=== PATIENT | male | born 1985 | race Caucasian/White ===

== ENCOUNTER 2016-10-30 12:38 | Day surgery (SDC) | payer BC ==
--- NOTE | 2016-10-29 08:04 | HP ---
DATE OF SURGERY: 10/30/2016 ADMISSION DIAGNOSIS: Symptoms of gastroesophageal reflux disease. ANTICIPATED PROCEDURE: EGD. HISTORY OF PRESENT ILLNESS: Symptoms of gastroesophageal reflux disease, epigastric discomfort. Araceli fundoplasty has been suggested. He presents for evaluation today with EGD. PAST MEDICAL HISTORY: ALLERGIES: NONE. MEDICATIONS: Pantoprazole. PAST SURGICAL HISTORY: Colonoscope. SOCIAL HISTORY: Negative. FAMILY HISTORY: Negative. REVIEW OF SYSTEMS: Negative. PHYSICAL EXAMINATION: VITAL SIGNS: Normal. CHEST: Clear. COR: Regular. ABDOMEN: No palpable organomegaly or mass. IMPRESSION: Epigastric pain symptoms and gastroesophageal reflux disease. PLAN: EGD.
[~2016-10-30 12:38] MED LIST: DEMEROL 50 MG IV ONE; Lactated Ringers IV ONE; Versed 2 MG/2 ML Injection IV ONE
[2016-10-30] MEDS ORDERED: Sodium Chloride 0.9% 1000 ML 1,000 ML IV SCH (12:45)
[2016-10-30 14:32] VITALS: BP 98/56; PULSE 60; O2SAT 97
--- NOTE | 2016-10-30 15:28 | OP ---
SURGERY DATE/TIME: 10/30/2016 1310 PREOPERATIVE DIAGNOSIS: Epigastric pain, symptoms of reflux. POSTOPERATIVE DIAGNOSIS: Grade II-III reflux with no hiatal hernia. PROCEDURE: EGD. SURGEON: Dax Birch M.D. ANESTHESIA: IV sedation. COMPLICATIONS: None. CONDITION: Stable. INDICATION: A 31 year-old with symptoms of reflux, epigastric pain. DESCRIPTION OF PROCEDURE: Taken to the endoscopy suite. Left lateral decubitus position. He is a very robust gentleman. 4 mg of Versed, 100 of Demerol. Initial satisfactory sedation. He basically was falling asleep. Despite this he was a little gaggy. I think this is consistent with his diagnosis of reflux. There was a small lip of esophagitis grade II. There was no hiatal hernia. He did have very good reflexes. Fundus, body, antrum normal. Pylorus just a minimal old deformity on the greater curvature side at 9:00 at the pylorus. There was nothing present currently. Keyhole view satisfactory. Pylorus satisfactory. Duodenal bulb satisfactory. Second portion satisfactory. Ampullary area just slightly swollen look but I believe was totally normal. The scope withdrawn. No additional lesions noted. The patient tolerated the procedure satisfactorily. He is on Protonix. Will see him back in the office in about six weeks.
== END 2016-10-30 14:45 | disposition home or self-care (01) ==
LOC: SDC 12:38
PROVIDERS: ATTEND Surgery
PROC: 0DJ08ZZ Inspection of Upper Intestinal Tract, Via Natural or Artificial Opening Endoscopic (ICD-10-PCS; principal; 2016-10-30)
DX: K21.9 Gastro-esophageal reflux disease without esophagitis (principal)
CPT/HCPCS: J2175; J2250

== ENCOUNTER 2018-06-28 19:48 | Emergency (ER) | payer SELFPAY ==
[2018-06-28] MEDS ORDERED: Pepcid 20 MG VIAL IV ONE ×2 (20:56→21:00)
[2018-06-28] MEDS ORDERED: Sodium Chloride 0.9% 1000 ML 1,000 ML IV STA (20:56)
[2018-06-28] MEDS ORDERED: Sodium Chloride 0.9% 1000 ML 1,000 ML ONE (21:00)
--- NOTE | 2018-06-28 21:01 | ERPHSYRPT ---
- History of Present Illness Time Seen by Provider: 06/28/18 20:51 Historian: patient Exam Limitations: no limitations Patient Subjective Stated Complaint: Abdominal pain Triage Nursing Assessment: Patient ambulated into ED and transferred self to bed. Patient A+O X 3. Patient complains of abdominal pain all over abdomen 4/10 , but worse after eating food. Patient states he is burping more than normal. Patietn states after he ate dinner this evening he started having a lot of pain 10/10 and has eased up, but pain is still there. Patient's bowel's are moving more than usual and is getting softer. Patient's abdomen soft and round with bs x 4. Physician History: This is a 32-year-old white male with history of GERD He arrives with complaint of burning pain diffusely in his abdomen this is been going on after eating. This occurred last week and recurred today. Patient states he is not vomiting he has had some nausea. Past medical history includes GERD. Past surgical history includes colonoscopy, EGD, Juvenal fundoplication. Social history patient has rare alcohol he does not use any illicit drugs he does not smoke. Timing/Duration: other (symptoms last week and again today.) Activities at Onset: other (Worse after eating) Quality: burning Abdominal Pain Onset Location: generalized abdomen Pain Radiation: no radiation Severity of Pain-Max: moderate Severity of Pain-Current: mild Modifying Factors: Improves With: eating. Worsens With: analgesics, antacids, breathing, coughing, defecating, exercise, lying down, movement, palpation, rest , urinating, vomiting, position, walking Associated Symptoms: nausea, No back, No chest pain, No diaphoresis, No diarrhea , No fever/chills, No fatigue, No headache, No heartburn, No loss of appetite, No neck pain, No rash, No shortness of breath, No syncope, No testicular pain, No vomiting, No weakness Previous symptoms: other (similar symptoms with ulcers) Allergies/Adverse Reactions: No Known Drug Allergies Allergy (Verified 06/28/18 20:10) Hx Tetanus, Diphtheria Vaccination/Date Given: No Hx Influenza Vaccination/Date Given: No Hx Pneumococcal Vaccination/Date Given: No Immunizations Up to Date: Yes - Review of Systems Constitutional: No Fever, No Chills Eyes: No Symptoms Ears, Nose, & Throat: No Symptoms Respiratory: No Cough, No Dyspnea Cardiac: No Chest Pain, No Edema, No Syncope Abdominal/Gastrointestinal: Abdominal Pain, Nausea, No Vomiting, No Diarrhea, No Constipation, No Hematemesis, No Hematochezia, No Melena, No Dysphagia, No Appetite Changes Genitourinary Symptoms: No Dysuria Musculoskeletal: No Back Pain, No Neck Pain Skin: No Rash Neurological: No Dizziness, No Focal Weakness, No Sensory Changes Psychological: No Symptoms Endocrine: No Symptoms All Other Systems: Reviewed and Negative - Past Medical History Pertinent Past Medical History: No Neurological History: No Pertinent History ENT History: No Pertinent History Cardiac History: No Pertinent History Respiratory History: No Pertinent History Endocrine Medical History: No Pertinent History Musculoskeletal History: No Pertinent History GI Medical History: GERD History: No Pertinent History Psycho-Social History: No Pertinent History Male Reproductive Disorders: No Pertinent History - Past Surgical History Past Surgical History: No Neuro Surgical History: No Pertinent History Cardiac: No Pertinent History Respiratory: No Pertinent History Gastrointestinal: No Pertinent History, Other Genitourinary: No Pertinent History Musculoskeletal: No Pertinent History Male Surgical History: No Pertinent History Other Surgical History: colonoscopy and egd. Araceli fundoundoplocation 2017 - Social History Smoking Status: Never smoker Exposure to second hand smoke: Yes Drug Use: none Patient Lives Alone: No - Nursing Vital Signs Nursing Vital Signs: Initial Vital Signs Temperature 98.6 F 06/28/18 19:56 Pulse Rate 89 06/28/18 19:56 Respiratory Rate 18 06/28/18 19:56 Blood Pressure 127/74 06/28/18 19:56 O2 Sat by Pulse Oximetry 97 06/28/18 19:56 Pain Scale Pain Intensity 4 - Physical Exam General Appearance: no apparent distress, alert Eye Exam: PERRL/EOMI, eyes nml inspection Ears, Nose, Throat Exam: normal ENT inspection, pharynx normal, moist mucous membranes Neck Exam: normal inspection, non-tender, supple, full range of motion Respiratory Exam: normal breath sounds, lungs clear, No respiratory distress Cardiovascular Exam: regular rate/rhythm, normal heart sounds, normal peripheral pulses, No murmur Gastrointestinal/Abdomen Exam: soft, normal bowel sounds, tenderness (Mild right upper quadrant tenderness), No distention, No mass, No guarding, No ecchymosis, No pulsatile mass, No rebound, No hernia, No hepatomegaly, No organomegaly, No splenomegaly, No bruit Back Exam: normal inspection, normal range of motion, No CVA tenderness, No vertebral tenderness Extremity Exam: normal inspection, normal range of motion, pelvis stable Neurologic Exam: alert, oriented x 3, cooperative, underwriter solicitation director II-XII nml as tested ( Abdomen essentially wit), normal mood/affect, nml cerebellar function, sensation nml, No motor deficits Skin Exam: normal color (she), warm, dry SpO2 Interpretation: normal (97%) SpO2: 97 Oxygen Delivery: Room Air - Course Nursing assessment & vital signs reviewed: Yes EKG Interpreted by Me: RATE - CT Exams Abdomen/Pelvis CT Interpretation: Tele-radiologist Report (CT abdomen and pelvis: Impression no acute findings) Ordered Tests: Active Orders 24 hr Category Date Time Status IV Insertion STAT Care 06/28/18 20:56 Active ABDOMEN AND PELVIS W CONTRAST [CT] Stat Exams 06/28/18 21:31 Taken AMYLASE Stat Lab 06/28/18 21:00 Completed CBC W DIFF Stat Lab 06/28/18 21:00 Completed CMP Stat Lab 06/28/18 21:00 Completed LIPASE Stat Lab 06/28/18 21:00 Completed UA W/RFX UR CULTURE Stat Lab 06/28/18 21:15 Completed Medication Summary Discontinued Medications Generic Name Dose Route Start Last Admin Trade Name Freq PRN Reason Stop Dose Admin Famotidine 20 mg 06/28/18 20:56 06/28/18 21:06 Pepcid 20 Mg Vial IV 06/28/18 20:57 20 mg STAT ONE Administration Famotidine Confirm 06/28/18 21:00 Pepcid 20 Mg Vial Administered 06/28/18 21:01 Dose 20 mg IV .STK-MED ONE Sodium Chloride 1,000 mls @ 999 mls/hr 06/28/18 20:56 06/28/18 21:06 Sodium Chloride 0.9% 1000 Ml IV 06/28/18 21:56 999 mls/hr .Q1H1M STA Administration Sodium Chloride Confirm 06/28/18 21:00 Sodium Chloride 0.9% 1000 Ml Administered 06/28/18 21:01 Dose 1,000 mls @ ud .ROUTE .STK-MED ONE Lab/Rad Data: Laboratory Result Diagrams 06/28/18 21:00 06/28/18 21:00 Laboratory Results 0106/28/18 06/28/18 Range/Units 21:15 21:00 21:00 WBC 17.9 H (4.0-10.5) K/mm3 RBC 5.20 (4.1-5.6) M/mm3 Hgb 15.1 (12.5-18.0) gm/dl Hct 43.6 (42-50) % MCV 83.8 (78-100) fl MCH 29.0 (26-32) pg MCHC 34.6 (32-36) g/dl RDW 13.4 (11.5-14.0) % Plt Count 272 (150-450) K/mm3 MPV 10.9 H (6-9.5) fl Gran % 72.4 H (36.0-66.0) % Eos # (Auto) 0.06 (0-0.5) Absolute Lymphs (auto) 3.28 (1.0-4.6) Absolute Monos (auto) 1.58 H (0.0-1.3) Lymphocytes % 18.3 L (24.0-44.0) % Monocytes % 8.8 (0.0-12.0) % Eosinophils % 0.3 (0.00-5.0) % Basophils % 0.2 (0.0-0.4) % Absolute Granulocytes 12.97 H (1.4-6.9) Basophils # 0.03 (0-0.4) Sodium 140 (137-145) mmol/L Potassium 3.9 (3.5-5.1) mmol/L Chloride 102 (98-107) mmol/L Carbon Dioxide 26 (22-30) mmol/L Anion Gap 16.0 H (5-15) MEQ/L BUN 15 (9-20) mg/dL Creatinine 0.74 (0.66-1.25) mg/dL Estimated GFR > 60.0 ML/MIN Glucose 88 (74-106) mg/dL Calcium 9.2 (8.4-10.2) mg/dL Total Bilirubin 0.50 (0.2-1.3) mg/dL AST 15 L (17-59) U/L ALT 25 (0-50) U/L Alkaline Phosphatase 67 (38-126) U/L Serum Total Protein 7.6 (6.3-8.2) g/dL Albumin 4.6 (3.5-5.0) g/dL Amylase 47 (30-110) U/L Lipase 145 (23-300) U/L Urine Color YELLOW (YELLOW) Urine Appearance CLEAR (CLEAR) Urine pH 6.0 (5-6) Ur Specific [place] 1.025 (1.005-1.025) Urine Protein NEGATIVE (Negative) Urine Ketones NEGATIVE (NEGATIVE) Urine Blood NEGATIVE (0-5) Gurpreet/ul Urine Nitrite NEGATIVE (NEGATIVE) Urine Bilirubin NEGATIVE (NEGATIVE) Urine Urobilinogen 2 (0-1) mg/dL Ur Leukocyte Esterase NEGATIVE (NEGATIVE) Urine WBC (Auto) NONE (0-5) /HPF Urine RBC (Auto) NONE (0-2) /HPF U Epithel Cells (Auto) NONE (FEW) /HPF Urine Bacteria (Auto) NONE (NEGATIVE) /HPF Urine Mucus (Auto) SLIGHT (NEGATIVE) /HPF Urine Culture Reflexed NO (NO) Urine Glucose NEGATIVE (NEGATIVE) mg/dL Slides for Path Review YES - Progress Progress: improved Progress Note: 06/28/18 23:44 This is a 32-year-old white male with history of GERD who has had Juvenal fundoplication. He states he has been having pain in his abdomen which has been diffuse symptoms have been going on for approximately one week apparently had pain last week this recurred today he states pain is worse after eating burning in character. Patient without vomiting he did have some nausea he was mildly tender in the right upper quadrant on physical examination. The patient's vitals were stable he did not want any morphine for pain he was given IV normal saline 1 L and given Pepcid iv. Patient is feeling better. He was noted to have a white count of 17.9 hemoglobin 15.1 hematocrit 43.6 platelets with to 72. Patient's chemistry was normal patient's amylase and lipase were normal urinalysis were unremarkable. CT of the patient's abdomen was obtained found to have no acute findings. Will go ahead and discharge patient. I gave the patient an option as to taking Prilosec at home [id number] or receiving a prescription he prefers to take [id number] Prilosec. Will go ahead and discharge patient will write for a prescription of Phenergan as needed. Patient has been advised to follow-up with his family doctor (Dr. Askew) He has been advised to go to clear fluids only 24-48 hours if abdominal pain and to return for acute distress or for severe symptoms. 06/28/18 23:49 - Departure Time of Disposition: 23:47 Departure Disposition: Home Clinical Impression: Abdominal pain Qualifiers: Abdominal location: generalized Qualified Code(s): R10.84 - Generalized abdominal pain Condition: Fair Critical Care Time: No Referrals: DANAE ASKEW MD [Primary Care Provider] - Additional Instructions: Return home. Plenty of fluids, clear fluids only 24-48 hours if abdominal pain, nausea, or vomiting. [id number] Prilosec one orally daily. Phenergan 25 mg one orally every 4-6 hours as needed for nausea. Follow-up with Dr. Askew call for an appointment. Return for acute distress severe symptoms or for any problems. Prescriptions: Promethazine HCl 25 mg [Phenergan 25 mg] 25 mg PO Q4-6HPRN PRN #12 tablet PRN Reason: nausea and vomiting
[2018-06-28 21:15] LABS: BASOPHIL % 0.2 % (0.0-0.4); Basophil (Absolute #) 0.03 (0-0.4); Eosinophil % 0.3 % (0.00-5.0); Eosinophil (Absolute #) 0.06 (0-0.5); Granulocytes % 72.4 % (36.0-66.0); Hematocrit 43.6 % (42-50); Hemoglobin 15.1 gm/dl (12.5-18.0); Lymphocyte (Absolute #) 3.28 (1.0-4.6); Lymphocytes % 18.3 % (24.0-44.0); Mean Cell Volume 83.8 fl (78-100); Mean Corpuscular Hgb Concent. 34.6 g/dl (32-36); Mean Platelet Volume 10.9 fl (6-9.5); Monocyte (Absolute #) 1.58 (0.0-1.3); Monocytes % 8.8 % (0.0-12.0); Platelet Count 272 K/mm3 (150-450); Red Cell Distribution Width 13.4 % (11.5-14.0); White Blood Count 17.9 K/mm3 (4.0-10.5)
[2018-06-28 21:24] LABS: ALBUMIN 4.6 g/dL (3.5-5.0); ALKALINE PHOSPHATASE 67 U/L (38-126); AMYLASE 47 U/L (30-110); BLOOD UREA NITROGEN 15 mg/dL (9-20); CHLORIDE 102 mmol/L (98-107); Calcium 9.2 mg/dL (8.4-10.2); Carbon Dioxide 26 mmol/L (22-30); Creatinine 1 0.74 mg/dL (0.66-1.25); Glucose 88 mg/dL (74-106); LIPASE 145 U/L (23-300); Potassium 3.9 mmol/L (3.5-5.1); SGOT/AST 15 U/L (17-59); SGPT/ALT 25 U/L (0-50); SODIUM 140 mmol/L (137-145); Total Protein 7.6 g/dL (6.3-8.2)
[2018-06-28 21:38] LABS: Appearance CLEAR (CLEAR); Bilirubin NEGATIVE (NEGATIVE); Blood NEGATIVE Ery/ul (0-5); Glucose NEGATIVE (NEGATIVE); Ketones NEGATIVE (NEGATIVE); Leukocyte Esterase NEGATIVE (NEGATIVE); Mucus SLIGHT /HPF (NEGATIVE); Nitrite NEGATIVE (NEGATIVE); Protein,Urine Dip NEGATIVE (Negative); Specific Gravity 1.025 (1.005-1.025); Urobilinogen 2 mg/dL (0-1)
[2018-06-28 22:41] LABS: Slide Review 1 YES
[2018-06-28 23:11] VITALS: BP 125/90; PULSE 78
[2018-06-28 23:41] VITALS: O2SAT 97
--- NOTE | 2018-06-29 08:56 | XRAY ---
Indication: Abdomen pain. GERD. Multiple contiguous axial images obtained through the abdomen and pelvis using 80 cc Isovue 370 contrast only. Comparison: None Lung bases demonstrates minimal bibasilar dependent atelectasis and tiny right base calcified granuloma. No infiltrate or effusion. Heart is not enlarged. Noncontrasted stomach and bowel loops appear nonobstructed. Normal appendix. Mild sigmoid diverticulosis without diverticulitis. No free fluid/air. Spleen is enlarged measuring 15.5 cm in greatest axial dimension. Tiny 4 mm right mid renal cortical cyst. Remaining liver, gallbladder, pancreas, spleen, adrenal glands, kidneys, ureters, bladder, and aorta appear unremarkable. No pathologic retroperitoneal lymphadenopathy. Osseous structures intact. No ventral or inguinal hernias. Impression: 1. Tiny right renal cyst, sigmoid diverticulosis, and splenomegaly. 2. Remaining CT abdomen/pelvis with contrast exam is negative. Comment: Preliminary interpretation was made by C. Incidental findings including diverticulosis, splenomegaly, and right renal cyst not reported. CT DI 23.68
== END 2018-06-29 00:02 | disposition home or self-care (01) ==
LOC: ED 19:48
DX: R10.84 Generalized abdominal pain (principal); R11.0 Nausea; R10.11 Right upper quadrant pain
CPT/HCPCS: 36000; 36415; 74177; 80053; 81001; 82150; 83690; 85025; 96360; 96374; 99284

== ENCOUNTER 2019-11-25 18:07 | Emergency (ER) | payer SELFPAY ==
[2019-11-25] MEDS ORDERED: PROTONIX 40 MG IV IV ONE ×2 (18:18→18:23)
[2019-11-25] MEDS ORDERED: Protonix 40MG Tablet PO ONE (18:18)
[2019-11-25] MEDS ORDERED: Sodium Chloride 0.9% 1000 ML 1,000 ML IV STA (18:18)
[2019-11-25] MEDS ORDERED: MORPHINE SULFATE 4 MG INJ IV ONE (18:18)
[2019-11-25] MEDS ORDERED: Zofran 4 MG/2 ML VIAL IV ONE (18:21)
[2019-11-25] MEDS ORDERED: Zofran 4 MG/2 ML VIAL ONE (18:23)
[2019-11-25] MEDS ORDERED: Sodium Chloride 0.9% 1000 ML 1,000 ML ONE (18:23)
[2019-11-25] MEDS ORDERED: MORPHINE SULFATE 4 MG INJ ONE (18:23)
[2019-11-25 18:30] LABS: Absolute Neutrophil Ct (ANC) 5.28 (1.4-6.9); BASOPHIL % 0.4 % (0.0-0.4); Basophil (Absolute #) 0.03 (0-0.4); Eosinophil % 0.8 % (0.00-5.0); Eosinophil (Absolute #) 0.06 (0-0.5); Hematocrit 40.9 % (42-50); Hemoglobin 14.4 gm/dl (12.5-18.0); Lymphocyte (Absolute #) 1.58 (1.0-4.6); Lymphocytes % 21.4 % (24.0-44.0); Mean Cell Volume 83.8 fl (78-100); Mean Corpuscular Hemoglobin 29.5 pg (26-32); Mean Corpuscular Hgb Concent. 35.2 g/dl (32-36); Mean Platelet Volume 11.2 fl (7.5-11.0); Monocyte (Absolute #) 0.44 (0.0-1.3); Neutrophil % 71.4 % (36.0-66.0); Platelet Count 233 K/mm3 (150-450); Red Blood Count 4.88 M/mm3 (4.1-5.6); White Blood Count 7.4 K/mm3 (4.0-10.5)
[2019-11-25 18:46] LABS: ALBUMIN 4.5 g/dL (3.5-5.0); ALKALINE PHOSPHATASE 77 U/L (38-126); AMYLASE 56 U/L (30-110); ANION GAP 13.7 MEQ/L (5-15); BLOOD UREA NITROGEN 12 mg/dL (9-20); CHLORIDE 105 mmol/L (98-107); Calcium 9.3 mg/dL (8.4-10.2); Carbon Dioxide 25 mmol/L (22-30); Creatinine 1 0.79 mg/dL (0.66-1.25); Glucose 142 mg/dL (74-106); LIPASE 124 U/L (23-300); Potassium 3.8 mmol/L (3.5-5.1); SGOT/AST 21 U/L (17-59); SGPT/ALT 25 U/L (0-50); SODIUM 139 mmol/L (137-145); Total Protein 7.8 g/dL (6.3-8.2)
--- NOTE | 2019-11-25 19:18 | ERPHSYRPT ---
- History of Present Illness Time Seen by Provider: 11/25/19 18:13 Historian: patient Exam Limitations: no limitations Patient Subjective Stated Complaint: pt reports for the last 3 days he has headaches after eating small amounts, pt reports that he also has abd pain. pt reports after vomiting today he noticed bright red blood in his emesis. pt reports poor appetite. Triage Nursing Assessment: pt is aox3, pupils perrl, afebrile, resps easy and non labored, cap refill < 3 seconds, radial pulses strong and equal, abd soft, tender diffusely, bowel sounds present normoactive x 4. pt skin pink warm dry. Physician History: 34 years old male with history of IBS, Niesen fundoplication presented in the ER with 3 days history of intermittent abdominal pain with mild headache associated with nausea. Patient reports symptoms started after eating and get better after 1 to 2 hours but today her symptoms are not going away, associated with severe nausea and nonprojectile, nonbilious vomiting and noticed some specks of bright red blood. He is also complaining of increasing generalized abdominal pain moderate intensity which gets worse with movements and palpation no significant relieving factors. Denies associated fever or chills. Denies any neck pain. Headache is better now. Denies any sick contact. Timing/Duration: day(s) (3), intermittent, worse Activities at Onset: rest Quality: cramping, dullness Abdominal Pain Onset Location: generalized abdomen Pain Radiation: no radiation Severity of Pain-Max: moderate Severity of Pain-Current: moderate Modifying Factors: Improves With: eating Associated Symptoms: nausea, vomiting Previous symptoms: no prior history Allergies/Adverse Reactions: No Known Drug Allergies Allergy (Verified 11/25/19 18:25) Home Medications: Dicyclomine HCl 20 mg [Bentyl 20 mg] 20 mg PO UD 11/25/19 [History] Fexofenadine HCl [Asndra Allergy] 60 mg PO DAILY 11/25/19 [History] Hx Tetanus, Diphtheria Vaccination/Date Given: Yes Hx Influenza Vaccination/Date Given: No Hx Pneumococcal Vaccination/Date Given: No Immunizations Up to Date: Yes Travel Risk - International Travel Have you traveled outside of the country in past 3 weeks: No Have you or anyone close to you been diagnosed with or: No Do your reside in a community with a known COVID-19 case?: Yes If Yes where:: [place] - Coronavirus Screening Has patient experienced Coronavirus symptoms: No - Review of Systems Constitutional: Fatigue Eyes: No Symptoms Ears, Nose, & Throat: No Symptoms Respiratory: No Symptoms Cardiac: No Symptoms Abdominal/Gastrointestinal: Abdominal Pain, Nausea, Vomiting Genitourinary Symptoms: No Symptoms Musculoskeletal: No Symptoms Skin: No Symptoms Neurological: No Symptoms Psychological: No Symptoms Endocrine: No Symptoms Hematologic/Lymphatic: No Symptoms Immunological/Allergic: No Symptoms - Past Medical History Pertinent Past Medical History: No Neurological History: No Pertinent History ENT History: No Pertinent History Cardiac History: No Pertinent History Respiratory History: No Pertinent History Endocrine Medical History: No Pertinent History Musculoskeletal History: No Pertinent History GI Medical History: Colitis, GERD, Irritable Bowel, Ulcer History: No Pertinent History Psycho-Social History: No Pertinent History Male Reproductive Disorders: No Pertinent History - Past Surgical History Past Surgical History: Yes Neuro Surgical History: No Pertinent History Cardiac: No Pertinent History Respiratory: No Pertinent History Gastrointestinal: No Pertinent History, Other Genitourinary: No Pertinent History Musculoskeletal: No Pertinent History Male Surgical History: No Pertinent History Other Surgical History: colonoscopy and egd. Araceli fundoundoplocation 2017 - Social History Smoking Status: Never smoker Exposure to second hand smoke: No Drug Use: none Patient Lives Alone: No - Nursing Vital Signs Nursing Vital Signs: Initial Vital Signs Temperature 98 F 11/25/19 18:10 Pulse Rate 89 11/25/19 18:10 Respiratory Rate 20 11/25/19 18:10 Blood Pressure 136/86 11/25/19 18:10 O2 Sat by Pulse Oximetry 98 11/25/19 18:10 Pain Scale Pain Intensity 4 - Physical Exam General Appearance: no apparent distress Eye Exam: PERRL/EOMI, eyes nml inspection Ears, Nose, Throat Exam: normal ENT inspection, pharyngeal erythema Neck Exam: normal inspection, non-tender, supple, full range of motion Respiratory Exam: normal breath sounds, lungs clear Cardiovascular Exam: regular rate/rhythm, normal heart sounds Gastrointestinal/Abdomen Exam: soft, tenderness (Generalized with minimal guarding) Back Exam: normal inspection, normal range of motion, No CVA tenderness Extremity Exam: normal inspection, normal range of motion Neurologic Exam: alert, oriented x 3, cooperative Skin Exam: normal color SpO2 Interpretation: normal SpO2: 95 O2 Delivery: Room Air Ordered Tests: Active Orders 24 hr Category Date Time Status IV Insertion STAT Care 11/25/19 18:18 Active NPO (ED) STAT Care 11/25/19 18:18 Active ABDOMEN AND PELVIS W CONTRAST [CT] Stat Exams 11/25/19 18:57 Taken AMYLASE Stat Lab 11/25/19 18:15 Completed CBC W DIFF Stat Lab 11/25/19 18:15 Completed CMP Stat Lab 11/25/19 18:15 Completed LIPASE Stat Lab 11/25/19 18:15 Completed UA W/RFX UR CULTURE Stat Lab 11/25/19 18:18 Uncollected Medication Summary Discontinued Medications Generic Name Dose Route Start Last Admin Trade Name Freq PRN Reason Stop Dose Admin Sodium Chloride 1,000 mls @ 999 mls/hr 11/25/19 18:18 11/25/19 19:28 Sodium Chloride 0.9% 1000 Ml IV 11/25/19 19:18 Infused .Q1H1M STA Infusion Sodium Chloride Confirm 11/25/19 18:23 Sodium Chloride 0.9% 1000 Ml Administered 11/25/19 18:24 Dose 1,000 mls @ ud .ROUTE .STK-MED ONE Morphine Sulfate 4 mg 11/25/19 18:18 11/25/19 18:28 Morphine Sulfate 4 Mg Inj IV 11/25/19 18:19 4 mg STAT ONE Administration Morphine Sulfate Confirm 11/25/19 18:23 Morphine Sulfate 4 Mg Inj Administered 11/25/19 18:24 Dose 4 mg .ROUTE .STK-MED ONE Ondansetron HCl 4 mg 11/25/19 18:21 11/25/19 18:28 Zofran 4 Mg/2 Ml Vial IV 11/25/19 18:22 4 mg STAT ONE Administration Ondansetron HCl Confirm 11/25/19 18:23 Zofran 4 Mg/2 Ml Vial Administered 11/25/19 18:24 Dose 4 mg .ROUTE .STK-MED ONE Pantoprazole Sodium 40 mg 11/25/19 18:18 11/25/19 18:22 Protonix 40mg Tablet PO 11/25/19 18:19 Not Given STAT ONE Pantoprazole Sodium 40 mg 11/25/19 18:18 11/25/19 18:28 Protonix 40 Mg Iv IV 06/05/20 18:19 40 mg STAT ONE Administration Pantoprazole Sodium Confirm 11/25/19 18:23 Protonix 40 Mg Iv Administered 11/25/19 18:24 Dose 40 mg IV .STK-MED ONE Lab/Rad Data: Laboratory Result Diagrams 11/25/19 18:15 11/25/19 18:15 Laboratory Results 11/25/19 11/25/19 Range/Units 18:15 18:15 WBC 7.4 (4.0-10.5) K/mm3 RBC 4.88 (4.1-5.6) M/mm3 Hgb 14.4 (12.5-18.0) gm/dl Hct 40.9 L (42-50) % MCV 83.8 (78-100) fl MCH 29.5 (26-32) pg MCHC 35.2 (32-36) g/dl RDW 13.0 (11.5-14.0) % Plt Count 233 (150-450) K/mm3 MPV 11.2 H (7.5-11.0) fl Gran % 71.4 H (36.0-66.0) % Eos # (Auto) 0.06 (0-0.5) Absolute Lymphs (auto) 1.58 (1.0-4.6) Absolute Monos (auto) 0.44 (0.0-1.3) Lymphocytes % 21.4 L (24.0-44.0) % Monocytes % 6.0 (0.0-12.0) % Eosinophils % 0.8 (0.00-5.0) % Basophils % 0.4 (0.0-0.4) % Absolute Granulocytes 5.28 (1.4-6.9) Basophils # 0.03 (0-0.4) Sodium 139 (137-145) mmol/L Potassium 3.8 (3.5-5.1) mmol/L Chloride 105 (98-107) mmol/L Carbon Dioxide 25 (22-30) mmol/L Anion Gap 13.7 (5-15) MEQ/L BUN 12 (9-20) mg/dL Creatinine 0.79 (0.66-1.25) mg/dL Estimated GFR > 60.0 ML/MIN Glucose 142 H (74-106) mg/dL Calcium 9.3 (8.4-10.2) mg/dL Total Bilirubin 0.70 (0.2-1.3) mg/dL AST 21 (17-59) U/L ALT 25 (0-50) U/L Alkaline Phosphatase 77 (38-126) U/L Serum Total Protein 7.8 (6.3-8.2) g/dL Albumin 4.5 (3.5-5.0) g/dL Amylase 56 (30-110) U/L Lipase 124 (23-300) U/L - Progress Progress: improved, re-examined Progress Note: 11/25/19 20:44 34 years old is evaluated for multiple episodes of vomiting and abdominal pain more in the upper abdomen. Patient has multiple episodes of dry heaving and because of difficulty vomiting from Niesen fundoplication at some blood, could be a small Jocelyn-Maxwell tear. He did not vomit while in the ER. I have given him Zofran along with Protonix and morphine, on reevaluation he is pain-free. Acute abdomen work-up including CT is negative for any acute findings. I believe patient has some gastritis. Recommended increase hydration and taking Zofran as needed. I will start him on Protonix and Carafate for a few days and recommended outpatient primary care follow-up. Discussed signs symptoms of worsening needing return to ER which he seems understanding. Stable for discharge. Counseled pt/family regarding: lab results, diagnosis, need for follow-up, rad results - Departure Departure Disposition: Home Clinical Impression: Gastritis Qualifiers: Gastritis type: unspecified gastritis Chronicity: acute Gastritis bleeding: with bleeding Qualified Code(s): K29.01 - Acute gastritis with bleeding Condition: Stable Critical Care Time: No Referrals: DANAE ASKEW MD [Primary Care Provider] - Follow Up with PCP/3 days Instructions: Vomiting -- Adult, Gastritis (DC) Additional Instructions: Take soft diet. Continue with Protonix and Carafate. Take Zofran as needed. Drink plenty of fluids. Take Tylenol as needed. Do not take ibuprofen. Follow -up with primary care for reevaluation. Return to ER for any worsening. Prescriptions: Ondansetron HCl [Zofran] 4 mg PO TID PRN #10 tablet PRN Reason: Nausea/Vomiting PANTOPRAZOLE 40 mg Tablet [Protonix 40MG Tablet] 40 mg PO QAM 30 Days #30 tab Sucralfate 1 gm [Carafate 1 GM] 1 g PO ACHS #60 tablet
[2019-11-25 19:20] VITALS: PULSE 64
[2019-11-25 20:48] VITALS: BP 120/56; O2SAT 96
--- NOTE | 2019-11-25 21:39 | XRAY ---
Indication: Upper abdomen pain and vomiting blood. History GERD. Multiple contiguous axial images obtained through the abdomen and pelvis using 80 cc Isovue 370 contrast. Comparison: June 28, 2018. Lung bases demonstrate stable tiny bibasilar calcified granulomas. No infiltrate or effusion. Heart is not enlarged. Noncontrasted stomach and bowel loops appear nonobstructed. Normal appendix. Stable minimal sigmoid diverticulosis without diverticulitis, 16 cm splenomegaly, and 4 mm right mid renal cortical cyst. No free fluid/air. Remaining liver, gallbladder, pancreas, spleen, adrenal glands, kidneys, ureters, and bladder appear unremarkable. No AAA or pathological retroperitoneal lymphadenopathy. Osseous structures intact. No ventral or inguinal hernias. Impression: 1. Stable sigmoid diverticulosis, splenomegaly, and right renal cyst. 2. Remaining CT abdomen/pelvis with contrast exam is negative.
== END 2019-11-25 20:54 | disposition home or self-care (01) ==
LOC: ED 18:07
DX: K29.01 Acute gastritis with bleeding (principal); R11.0 Nausea; R51 Headache; R10.9 Unspecified abdominal pain; Z79.899 Other long term (current) drug therapy
CPT/HCPCS: 36000; 36415; 74177; 80053; 82150; 83690; 85025; 96360; 96374; 96375; 99284; J2270; J2405

== ENCOUNTER 2019-12-15 07:04 | Emergency (ER) | payer OTHER ==
--- NOTE | 2019-12-15 07:08 | ERPHSYRPT ---
- History of Present Illness Time Seen by Provider: 12/15/19 07:08 Historian: patient Exam Limitations: no limitations Physician History: This is an overweight 34-year-old white male has a history of irritable bowel syndrome and has had a Araceli fundoplication that was performed approximately 2 years ago and presents with right upper quadrant right lateral and right lower abdominal pain. It is been present since yesterday and is worse today. He has had no nausea vomiting. He always has intermittent diarrhea. Patient is concerned about appendicitis. Patient was here approximately 3 weeks ago for upper abdominal pain and hematemesis. CAT scan of the abdomen and pelvis was performed at that time and there was no evidence of any acute process or pathology. The patient sees a director international out of [place]. Patient has a telemedicine appointment with that director international this afternoon. Patient denies chest pain and he denies shortness of breath. Timing/Duration: yesterday, worse Activities at Onset: none Quality: sharpness, stabbing Abdominal Pain Onset Location: RUQ, RLQ Pain Radiation: no radiation Severity of Pain-Max: moderate Severity of Pain-Current: moderate Modifying Factors: Improves With: nothing Associated Symptoms: denies symptoms Previous symptoms: no prior history Allergies/Adverse Reactions: No Known Drug Allergies Allergy (Verified 11/25/19 18:25) Home Medications: Dicyclomine HCl 20 mg [Bentyl 20 mg] 20 mg PO UD 11/25/19 [History] Fexofenadine HCl [Sandra Allergy] 60 mg PO DAILY 11/25/19 [History] Hx Tetanus, Diphtheria Vaccination/Date Given: Yes Hx Influenza Vaccination/Date Given: No Hx Pneumococcal Vaccination/Date Given: No Travel Risk - International Travel Have you traveled outside of the country in past 3 weeks: No - Coronavirus Screening Are you exhibiting any of the following symptoms?: No Close contact with a COVID-19 positive Pt in past 14-21 Days: No - Review of Systems Constitutional: No Symptoms Eyes: No Symptoms Ears, Nose, & Throat: No Symptoms Respiratory: No Symptoms Cardiac: No Symptoms Abdominal/Gastrointestinal: Abdominal Pain (Right upper quadrant, right lateral abdomen and right lower quadrant) Genitourinary Symptoms: No Symptoms Musculoskeletal: No Symptoms Skin: No Symptoms Neurological: No Symptoms Psychological: No Symptoms Endocrine: No Symptoms Hematologic/Lymphatic: No Symptoms Immunological/Allergic: No Symptoms All Other Systems: Reviewed and Negative - Past Medical History Pertinent Past Medical History: No Neurological History: No Pertinent History ENT History: No Pertinent History Cardiac History: No Pertinent History Respiratory History: No Pertinent History Endocrine Medical History: No Pertinent History Musculoskeletal History: No Pertinent History GI Medical History: Colitis, GERD, Irritable Bowel, Ulcer History: No Pertinent History Psycho-Social History: No Pertinent History Male Reproductive Disorders: No Pertinent History - Past Surgical History Past Surgical History: Yes Neuro Surgical History: No Pertinent History Cardiac: No Pertinent History Respiratory: No Pertinent History Gastrointestinal: No Pertinent History, Other Genitourinary: No Pertinent History Musculoskeletal: No Pertinent History Male Surgical History: No Pertinent History Other Surgical History: colonoscopy and egd. Araceli fundoundoplocation 2017 - Social History Smoking Status: Never smoker Exposure to second hand smoke: No Drug Use: none Patient Lives Alone: No - Nursing Vital Signs Nursing Vital Signs: Initial Vital Signs Pulse Rate 73 12/15/19 07:10 Respiratory Rate 20 12/15/19 07:10 Blood Pressure 148/82 12/15/19 07:10 O2 Sat by Pulse Oximetry 99 12/15/19 07:10 Pain Scale Pain Intensity 6 - Physical Exam General Appearance: mild distress, alert, anxiety, obese Eye Exam: PERRL/EOMI, eyes nml inspection Ears, Nose, Throat Exam: normal ENT inspection, moist mucous membranes Neck Exam: normal inspection, non-tender, supple, full range of motion Respiratory Exam: normal breath sounds, lungs clear, airway intact, No chest tenderness, No respiratory distress Cardiovascular Exam: regular rate/rhythm, normal heart sounds, normal peripheral pulses Gastrointestinal/Abdomen Exam: soft, normal bowel sounds, tenderness, guarding, No rebound Rectal Exam: not done Back Exam: normal inspection, normal range of motion, No CVA tenderness, No vertebral tenderness Extremity Exam: normal inspection, normal range of motion, pelvis stable Neurologic Exam: alert, oriented x 3, cooperative, 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, normal mood/affect, nml cerebellar function, nml station & gait Skin Exam: normal color, warm, dry Lymphatic Exam: No adenopathy SpO2 Interpretation: normal O2 Delivery: Room Air - Course Nursing assessment & vital signs reviewed: Yes Ordered Tests: Active Orders 24 hr Category Date Time Status IV Insertion STAT Care 12/15/19 07:31 Active ABDOMEN AND PELVIS W/0 CONTRAS [CT] Stat Exams 12/15/19 07:32 Completed AMYLASE Stat Lab 12/15/19 07:43 Completed CBC W DIFF Stat Lab 12/15/19 07:43 Completed CMP Stat Lab 12/15/19 07:43 Completed LIPASE Stat Lab 12/15/19 07:43 Completed Lactic Acid Stat Lab 12/15/19 07:43 Completed UA W/RFX UR CULTURE Stat Lab 12/15/19 09:42 Received Medication Summary Discontinued Medications Generic Name Dose Route Start Last Admin Trade Name Freq PRN Reason Stop Dose Admin Hydromorphone HCl 1 mg 12/15/19 07:31 12/15/19 07:43 Hydromorphone 1 Mg/Ml Ampule IV 12/15/19 07:32 1 mg STAT ONE Administration Hydromorphone HCl Confirm 12/15/19 07:41 Hydromorphone 1 Mg/Ml Ampule Administered 12/15/19 07:42 Dose 1 mg .ROUTE .STK-MED ONE Sodium Chloride 1,000 mls @ 999 mls/hr 12/15/19 07:31 12/15/19 08:55 Sodium Chloride 0.9% 1000 Ml IV 12/15/19 08:31 Infused .Q1H1M STA Infusion Sodium Chloride Confirm 12/15/19 07:41 Sodium Chloride 0.9% 1000 Ml Administered 12/15/19 07:42 Dose 1,000 mls @ ud .ROUTE .STK-MED ONE Ondansetron HCl 4 mg 12/15/19 07:31 12/15/19 07:43 Zofran 4 Mg/2 Ml Vial IV 12/15/19 07:32 4 mg STAT ONE Administration Ondansetron HCl Confirm 12/15/19 07:40 Zofran 4 Mg/2 Ml Vial Administered 12/15/19 07:41 Dose 4 mg .ROUTE .STK-MED ONE Lab/Rad Data: Laboratory Result Diagrams 12/15/19 07:43 12/15/19 07:43 Laboratory Results 12/15/19 12/15/19 12/15/19 Range/Units 07:43 07:43 07:43 WBC 8.0 (4.0-10.5) K/mm3 RBC 4.59 (4.1-5.6) M/mm3 Hgb 13.4 (12.5-18.0) gm/dl Hct 39.2 L (42-50) % MCV 85.4 (78-100) fl MCH 29.2 (26-32) pg MCHC 34.2 (32-36) g/dl RDW 13.2 (11.5-14.0) % Plt Count 200 (150-450) K/mm3 MPV 11.2 H (7.5-11.0) fl Gran % 65.0 (36.0-66.0) % Eos # (Auto) 0.09 (0-0.5) Absolute Lymphs (auto) 2.03 (1.0-4.6) Absolute Monos (auto) 0.65 (0.0-1.3) Lymphocytes % 25.4 (24.0-44.0) % Monocytes % 8.1 (0.0-12.0) % Eosinophils % 1.1 (0.00-5.0) % Basophils % 0.4 (0.0-0.4) % Absolute Granulocytes 5.18 (1.4-6.9) Basophils # 0.03 (0-0.4) Sodium 141 (137-145) mmol/L Potassium 3.8 (3.5-5.1) mmol/L Chloride 106 (98-107) mmol/L Carbon Dioxide 25 (22-30) mmol/L Anion Gap 13.3 (5-15) MEQ/L BUN 9 (9-20) mg/dL Creatinine 0.76 (0.66-1.25) mg/dL Estimated GFR > 60.0 ML/MIN Glucose 106 (74-106) mg/dL Lactic Acid 1.6 (0.4-2.0) Calcium 9.1 (8.4-10.2) mg/dL Total Bilirubin 0.60 (0.2-1.3) mg/dL AST 15 L (17-59) U/L ALT 16 (0-50) U/L Alkaline Phosphatase 62 (38-126) U/L Serum Total Protein 7.5 (6.3-8.2) g/dL Albumin 4.4 (3.5-5.0) g/dL Amylase 59 (30-110) U/L Lipase 235 (23-300) U/L - Progress Progress: improved, pain not gone completely, re-examined Progress Note: 12/15/19 09:53 CAT scan of the abdomen and pelvis shows new ascending pericolonic epiploic appendagitis. There is no diverticulitis. The appendix is visualized and there is no appendicitis. Counseled pt/family regarding: lab results, diagnosis, need for follow-up, rad results - Departure Departure Disposition: Home Clinical Impression: Epiploic appendagitis Condition: Stable Critical Care Time: No Referrals: DANAE ASKEW MD [Primary Care Provider] - Additional Instructions: Drink clear liquids for the next 8 to 12 hours. Slowly advance your diet. Return to the emergency department if your symptoms worsen. Keep your telemedi cine appointment with her director international today. Take your medications as prescribed. Prescriptions: Hydrocodone/APAP 5-325 Tab^^^ [[place] 5-325 Tablet^^^] 1 tab PO Q8H PRN PRN #6 tablet MDD 3 PRN Reason: Pain Ciprofloxacin [Cipro 500 MG] 500 mg PO BID #10 tablet Metronidazole 500 mg [Flagyl 500 MG] 500 mg PO TID #15 tablet
[2019-12-15] MEDS ORDERED: Hydromorphone 1 mg/ml Ampule IV ONE (07:31)
[2019-12-15] MEDS ORDERED: Zofran 4 MG/2 ML VIAL IV ONE (07:31)
[2019-12-15] MEDS ORDERED: Sodium Chloride 0.9% 1000 ML 1,000 ML IV STA (07:31)
[2019-12-15] MEDS ORDERED: Zofran 4 MG/2 ML VIAL ONE (07:40)
[2019-12-15] MEDS ORDERED: Hydromorphone 1 mg/ml Ampule ONE (07:41)
[2019-12-15] MEDS ORDERED: Sodium Chloride 0.9% 1000 ML 1,000 ML ONE (07:41)
[2019-12-15 07:45] LABS: Absolute Neutrophil Ct (ANC) 5.18 (1.4-6.9); BASOPHIL % 0.4 % (0.0-0.4); Basophil (Absolute #) 0.03 (0-0.4); Eosinophil % 1.1 % (0.00-5.0); Eosinophil (Absolute #) 0.09 (0-0.5); Hematocrit 39.2 % (42-50); Hemoglobin 13.4 gm/dl (12.5-18.0); Lymphocyte (Absolute #) 2.03 (1.0-4.6); Lymphocytes % 25.4 % (24.0-44.0); Mean Cell Volume 85.4 fl (78-100); Mean Corpuscular Hemoglobin 29.2 pg (26-32); Mean Corpuscular Hgb Concent. 34.2 g/dl (32-36); Mean Platelet Volume 11.2 fl (7.5-11.0); Monocyte (Absolute #) 0.65 (0.0-1.3); Monocytes % 8.1 % (0.0-12.0); Platelet Count 200 K/mm3 (150-450); Red Blood Count 4.59 M/mm3 (4.1-5.6); Red Cell Distribution Width 13.2 % (11.5-14.0)
[2019-12-15 07:57] LABS: ALBUMIN 4.4 g/dL (3.5-5.0); ALKALINE PHOSPHATASE 62 U/L (38-126); AMYLASE 59 U/L (30-110); ANION GAP 13.3 MEQ/L (5-15); BLOOD UREA NITROGEN 9 mg/dL (9-20); CHLORIDE 106 mmol/L (98-107); Calcium 9.1 mg/dL (8.4-10.2); Carbon Dioxide 25 mmol/L (22-30); Creatinine 1 0.76 mg/dL (0.66-1.25); Glucose 106 mg/dL (74-106); LIPASE 235 U/L (23-300); Potassium 3.8 mmol/L (3.5-5.1); SGOT/AST 15 U/L (17-59); SGPT/ALT 16 U/L (0-50); SODIUM 141 mmol/L (137-145); Total Protein 7.5 g/dL (6.3-8.2)
[2019-12-15 08:10] VITALS: O2SAT 98
--- NOTE | 2019-12-15 08:39 | XRAY ---
Indication: Right abdomen pain. Nausea. Multiple contiguous axial images obtained through the abdomen and pelvis without contrast as ordered. Comparison: November 25, 2019. Lung bases again demonstrates tiny calcified granulomas without infiltrate or effusion. Heart is not enlarged. Noncontrasted stomach and bowel loops remain nonobstructed. Normal appendix. Mid ascending colon now demonstrates minimal eccentric pericolonic stranding favoring epiploic appendagitis. There is now mild diffuse scattered colonic fecal debris throughout. Stable minimal sigmoid diverticulosis without diverticulitis. Spleen remains enlarged today measuring 15.5 cm. Stable nonobstructing punctate right renal calculus. Remaining liver, gallbladder, pancreas, spleen, adrenal glands, kidneys, ureters, bladder, and aorta appear unremarkable for noncontrast exam. Impression: 1. New mid ascending colon epiploic appendagitis. 2. New mild diffuse fecal stasis. 3. Again incidental sigmoid diverticulosis, splenomegaly, and nonobstructing right renal micro-calculus.
[2019-12-15 09:58] LABS: Appearance CLEAR (CLEAR); Bilirubin NEGATIVE (NEGATIVE); Blood NEGATIVE Ery/ul (0-5); Glucose NEGATIVE (NEGATIVE); Hyaline Casts 0-2 /LPF (0-2); Ketones NEGATIVE (NEGATIVE); Leukocyte Esterase NEGATIVE (NEGATIVE); Mucus MANY /HPF (NEGATIVE); Nitrite NEGATIVE (NEGATIVE); Protein,Urine Dip NEGATIVE (Negative); Specific Gravity 1.027 (1.005-1.025); Urobilinogen NEGATIVE mg/dL (0-1); WBC 0-2 /HPF (0-5)
[2019-12-15 10:06] VITALS: BP 110/67; PULSE 53
== END 2019-12-15 11:05 | disposition home or self-care (01) ==
LOC: ED 07:04
DX: K63.89 Other specified diseases of intestine (principal); K58.9 Irritable bowel syndrome, unspecified; R10.31 Right lower quadrant pain; R10.11 Right upper quadrant pain; Z79.899 Other long term (current) drug therapy
CPT/HCPCS: 36000; 36415; 74176; 80053; 81001; 82150; 83605; 83690; 85025; 96360; 96374; 96375; 99284; J1170; J2405

== ENCOUNTER 2021-03-01 20:53 | Emergency (ER) | payer SELFPAY ==
--- NOTE | 2021-03-01 22:08 | ERPHSYRPT ---
- History of Present Illness Time Seen by Provider: 03/01/21 21:46 Source: patient Exam Limitations: no limitations Patient Subjective Stated Complaint: C/O intermittent headaches since Thursday. States lights both his eyes/vision/head. Denies history of migraines. Denies blurry or double vision. States kids tested positive for COVID approx 3 weeks ago. Triage Nursing Assessment: Patient walked into ER with normal gait. Denies SOB or chest pain. Lungs clear A/P bilateral. No trouble with vision; no double or blurred vision. Physician History: 35 years old presented in the ER with chief complaint of headache all over for almost 1 week dull aching to sharp moderate to severe intensity, aggravated with bright light and partial relief with [id number] medications/rest pain. Denies associated numbness tingling weakness or visual disturbance. No nausea or vomiting. Does report having sinus infection couple of weeks ago for which she was given antibiotics and is better now. No history of migraines. No neck pain or rigidity. No fever or chills reported. No recent sick contact. Timing/Duration: week(s) (1), constant, gradual onset, improved Quality: dullness Head Pain Location: global Severity of Pain-Max: severe Severity of Pain-Current: mild Recent Head Trauma: no recent headache/trauma Modifying Factors: Improves With: medication, rest. Worsens With: exposure to light Associated Symptoms: dizziness, facial pain, nasal congestion, sinus infection, sensitive to light, No confusion, No fatigue, No fever/chills, No flushing, No light-headedness, No loss of consciousness, No nausea/vomiting, No nasal drainage, No numbness in legs/feet, No sweating, No scotoma, No seizures, No speech problems, No stiff neck, No trouble walking, No vision changes, No visual disturbance, No weakness Previous symptoms: no prior history Allergies/Adverse Reactions: No Known Drug Allergies Allergy (Verified 03/01/21 21:41) Home Medications: Dicyclomine HCl 20 mg [Bentyl 20 mg] 20 mg PO UD 11/25/19 [History] Fexofenadine HCl [Sandra Allergy] 60 mg PO DAILY 11/25/19 [History] Hx Tetanus, Diphtheria Vaccination/Date Given: Yes Hx Influenza Vaccination/Date Given: No Hx Pneumococcal Vaccination/Date Given: No Immunizations Up to Date: Yes Travel Risk - International Travel Have you traveled outside of the country in past 3 weeks: No - Coronavirus Screening Are you exhibiting any of the following symptoms?: Yes Symptoms: Vomiting/Diarrhea, Headaches/Body Aches/Fatigue Close contact with a COVID-19 positive Pt in past 14-21 Days: Yes - Vaccine Status Have you recieved a Covid-19 vaccination: No - Review of Systems Constitutional: No Symptoms Eyes: No Symptoms Ears, Nose, & Throat: Nose Congestion, Sinus Drainage Respiratory: No Symptoms Cardiac: No Symptoms Abdominal/Gastrointestinal: No Symptoms Genitourinary Symptoms: No Symptoms Musculoskeletal: No Symptoms Skin: No Symptoms Neurological: Headache Psychological: No Symptoms Endocrine: No Symptoms Hematologic/Lymphatic: No Symptoms - Past Medical History Pertinent Past Medical History: No Neurological History: No Pertinent History ENT History: No Pertinent History Cardiac History: No Pertinent History Respiratory History: No Pertinent History Endocrine Medical History: No Pertinent History Musculoskeletal History: No Pertinent History GI Medical History: Colitis, GERD, Irritable Bowel, Ulcer History: No Pertinent History Psycho-Social History: No Pertinent History Male Reproductive Disorders: No Pertinent History - Past Surgical History Past Surgical History: Yes Neuro Surgical History: No Pertinent History Cardiac: No Pertinent History Respiratory: No Pertinent History Gastrointestinal: No Pertinent History, Other Genitourinary: No Pertinent History Musculoskeletal: No Pertinent History Male Surgical History: No Pertinent History Other Surgical History: colonoscopy and egd. Araceli fundoundoplocation 2017 - Social History Smoking Status: Never smoker Exposure to second hand smoke: No Drug Use: none Patient Lives Alone: No - Nursing Vital Signs Nursing Vital Signs: Initial Vital Signs Temperature 97.7 F 03/01/21 21:33 Pulse Rate 92 H 03/01/21 21:33 Respiratory Rate 22 03/01/21 21:33 Blood Pressure 153/73 03/01/21 21:33 O2 Sat by Pulse Oximetry 98 03/01/21 21:33 Pain Scale Pain Intensity 2 - Physical Exam General Appearance: no apparent distress, alert, anxiety Eye Exam: PERRL/EOMI, eyes nml inspection Ears, Nose, Throat Exam: normal ENT inspection, TMs normal, pharynx normal Neck Exam: normal inspection, non-tender, supple, full range of motion Respiratory Exam: normal breath sounds, lungs clear Cardiovascular Exam: regular rate/rhythm, normal heart sounds Gastrointestinal/Abdominal Exam: soft, No tenderness Back Exam: normal inspection, normal range of motion Extremity Exam: normal inspection, normal range of motion Mental Status Exam: alert, oriented x 3, cooperative maintenance and repair worker Exam: normal hearing, normal speech, PERRL Coordination/Gait Exam: normal finger to nose, normal gait, normal cerebellar function, negative Romberg's sign Motor/Sensory Exam: no motor deficit, no sensory deficit, no pronator drift, negative Babinski's sign DTR Exam: bicep (R): 2+, bicep (L): 2+, knee (R): 2+, knee (L): 2+ Skin Exam: normal color SpO2 Interpretation: normal SpO2: 98 O2 Delivery: Room Air Ordered Tests: Active Orders 24 hr Category Date Time Status HEAD WITHOUT CONTRAST [CT] Stat Exams 03/01/21 22:04 Taken - Progress Progress: improved, re-examined Air Movement: good Progress Note: 03/01/21 23:25 35 years old is evaluated for generalized headache for the last few days. On presentation in the ER his headache is improved. Nonfocal neuro exam. Patient was sent in ER by primary care to have CT done which is negative. No nuchal rigidity. No fever or chills. Could have sinusitis causing headache. Offered pain medications which he refused. Recommended Tylenol/ibuprofen as needed and outpatient follow-up. Discussed signs symptoms of worsening needing return to ER which he seems understanding. Stable for discharge. Blood Culture(s) Obtained: No Antibiotics given: No Counseled pt/family regarding: diagnosis, need for follow-up, rad results - Departure Departure Disposition: Home Clinical Impression: Generalized headache Condition: Stable Critical Care Time: No Referrals: DANAE ASKEW MD [Primary Care Provider] - Follow Up with PCP/3 days Instructions: Headache, Adult (DC) Additional Instructions: , Follow-up with primary care physician for reevaluation. Return return to ER for intractable headache, numbness tingling weakness/visual disturbance/intractable nausea vomiting/neck pain etc.
[2021-03-01 23:17] VITALS: BP 119/74; PULSE 76; O2SAT 98
--- NOTE | 2021-03-02 07:25 | XRAY ---
Indication: Headache and dizziness 1 week. Covid 19 exposure. Multiple contiguous axial images obtained through the head without contrast. Comparison: None Normal appearing brain parenchyma, ventricles, and bony calvarium. Visualized paranasal sinuses and mastoid air cells are clear. Impression: Normal CT head without contrast exam. Comment: Preliminary interpretation made by [facility]. No critical discrepancy.
== END 2021-03-01 23:35 | disposition home or self-care (01) ==
LOC: ED 20:53
DX: R51.9 Headache, unspecified (principal)
CPT/HCPCS: 70450; 99283